=== PATIENT | female | born 1975 | race Caucasian/White ===

== ENCOUNTER 2023-07-26 15:21 | Emergency (ER) | payer OTHER ==
[2023-07-26 15:30] VITALS: BP 143/85; PULSE 91; RESP 20; TEMP 98.7; BMI 27.4
[2023-07-26 17:32] LABS: BASO % 0.6 % (0-2.0); EOS % 0.5 % (0-4.5); HEMATOCRIT 43.5 % (32.4-45.2); HEMOGLOBIN 14.6 GM/dL (10.7-15.3); MCH 32.1 pg (25.7-33.7); MCHC 33.6 g/dl (32.0-36.0); MEAN CELL VOLUME 95.6 fl (80-96); MONO % 4.6 % (3.8-10.2); NEUT % 71.3 % (42.8-82.8); PLATELET COUNT 298 10^3/uL (134-434); RBC 4.55 M/mm3 (3.60-5.2); WHITE BLOOD COUNT 14.3 K/mm3 (4.0-10.0)
[2023-07-26 17:59] LABS: POTASSIUM 4.5 mmol/L (3.5-5.1)
[2023-07-26 18:01] LABS: ALBUMIN 4.2 g/dl (3.4-5.0); BLOOD UREA NITROGEN 13.2 mg/dL (7-18); CALCIUM 9.1 mg/dL (8.5-10.1)
[2023-07-26 18:04] LABS: CREATININE 0.8 mg/dL (0.55-1.3)
[2023-07-26 18:06] LABS: BILIRUBIN,TOTAL 0.4 mg/dL (0.2-1); TOT PROT 7.4 g/dl (6.4-8.2)
== END 2023-07-26 19:00 | disposition left against medical advice (07) ==
LOC: JERFT 15:21
DX: R68.84 Jaw pain (principal); R22.1 Localized swelling, mass and lump, neck; R53.81 Other malaise
CPT/HCPCS: 36415; 80053; 85025; 99283-25